=== PATIENT | male | born 1985 | race Caucasian/White ===

== ENCOUNTER 2022-10-01 02:10 | Emergency (ER) | payer MEDICAID, OTHER ==
[~2022-10-01] VITALS: Ht 190.5 cm; Wt 98.0 kg
[2022-10-01] MEDS ORDERED: CLINDAMYCIN 900MG IV 50 ML IV ONE (02:30)
[2022-10-01] MEDS ORDERED: cefTRIAXone 1GM/50ML D5W 50 ML IV ONE (02:30)
[2022-10-01] MEDS ORDERED: CEPH-510 PO ×2 (02:30)
[2022-10-01] MEDS ORDERED: IBUP-1456 PO (02:30)
[2022-10-01 03:23] VITALS: BP 113/72
[2022-10-03] MEDS ORDERED: CEPH500T PO (11:50)
== END 2022-10-01 04:05 | disposition home or self-care (01) ==
LOC: ER 02:10
DX: L03.115 Cellulitis of right lower limb (principal)
CPT/HCPCS: 96365; 96368; 99284; J0696; J3490